=== PATIENT | female | born 1985 | race Caucasian/White ===

== ENCOUNTER 2016-09-14 10:30 | Inpatient (IN) | payer BC ==
[2016-09-14] MEDS ORDERED: TERBUTALINE SULFATE 1 MG/ML VIAL IV PRN (10:44)
[2016-09-14] MEDS ORDERED: MINERAL OIL 60 ML OIL TP PRN (10:44)
[2016-09-14] MEDS ORDERED: EPSOM SALT 454 GM TP PRN (10:44)
[2016-09-14] MEDS ORDERED: OXYTOCIN/RINGERS LACTATE 1,000 ML IV PRN (10:44)
[2016-09-14] MEDS ORDERED: LR 1,000 ML IV PRN (10:44)
[2016-09-14] MEDS ORDERED: LIDOCAINE 1% 30 ML SDV SC PRN (10:44)
[2016-09-14 11:04] LABS: % IMMATURE GRANULYOCYTES 0.5 % (0.0-1.1); ABSOLUTE IMMATURE GRANULOCYTES 0.06 10^3/uL (0.00-0.10); ADD DIFF? NO; ADD MORPH? NO; ADD SCAN? NO; ATYPICAL LYMPHOCYTE FLAG 0 (0-99); FRAGMENT RBC FLAG 0 (0-99); HEMATOCRIT 40.3 % (38.0-47.0); HEMOGLOBIN 14.1 g/dL (12.6-16.3); LEFT SHIFT FLG 0 (0-99); LIPEMIA HEMOLYSIS FLAG 90 (0-99); MEAN CELL VOLUME 91.4 fL (81.5-99.8); MEAN PLATELET VOLUME 11.1 fL (8.7-11.7); PLATELET CLUMPS FLAG 0 (0-99); PLATELET COUNT 137 10^3/uL (150-400); RED BLOOD CELL COUNT 4.41 10^6/uL (4.18-5.33); RED CELL DISTRIBUTION WIDTH 13.8 % (11.5-15.2)
[2016-09-14] MEDS ORDERED: fentaNYL 2MCG/ML/BUP 0.1% RTU 100 ML BAG EP ONE (12:21)
[2016-09-14] MEDS ORDERED: PHENYLEPHRINE HCL 100 MCG/ML SYR ONE (12:52)
[2016-09-14] MEDS ORDERED: PHENYLEPHRINE HCL 100 MCG/ML SYR IVP PRN (13:08)
[2016-09-14] MEDS ORDERED: LR 500 ML IV SCH (13:30)
[2016-09-14] MEDS ORDERED: fentaNYL 2MCG/ML/BUP 0.1% RTU 100 ML EP SCH (13:30)
--- NOTE | 2016-09-14 14:00 | OBPROG ---
OBG Progress Note Assessment/Plan: Assessment: 30 yo @ 40 4/7, active labor. Plan: 09/14/16 13:59 FWB reassuring. GBS neg. Expect . Subjective: 30 yo @ 40 4/7, active labor-comfortable with her epidural. Objective: 09/14/16 10:30 Patient ABO/Rh A NEGATIVE 09/14/16 10:30 - SVE Dilation (cm): 5 Effacement (%): 90 Station: -1 Current Contraction Pattern: Regular FHR (bpm): 130 FHR Pattern Variability: Moderate FHR Category: 2 Membranes: AROM Amniotic Fluid Color: Meconium Stained-Light ICD10 Worksheet Patient Problems: Problems Problem Status Diagnosed First stage of labor established Acute Labor established Acute
[2016-09-14] MEDS ORDERED: LIDOCAINE 1% 30 ML SDV ONE (14:34)
[2016-09-14] MEDS ORDERED: MISOPROSTOL 200 MCG TAB ONE (14:36)
--- NOTE | 2016-09-14 19:36 | OBPROG ---
OBG Progress Note Assessment/Plan: Assessment: 30 yo @ 40 4/7, active labor-feeling pressure.(late entry from 18:30) Plan: FWB reassuring. GBS neg. Expect . 09/14/16 19:35 Subjective: 30 yo @ 40 4/7, active labor-feeling pressure. Objective: 09/14/16 10:30 Patient ABO/Rh A NEGATIVE 09/14/16 10:30 VSS - SVE Dilation (cm): 9 Effacement (%): 100 Station: +1 Current Contraction Pattern: Regular FHR (bpm): 130 FHR Pattern Variability: Moderate FHR Category: 2 Membranes: AROM Amniotic Fluid Color: Meconium Stained-Light ICD10 Worksheet Patient Problems: Problems Problem Status Diagnosed First stage of labor established Acute Labor established Acute
--- NOTE | 2016-09-14 21:23 | OBPROC ---
- Labor and Delivery Onset of Contractions Date: 09/14/16 Onset of Contractions Time: 08:00 Onset of Contractions Type: Spontaneous Rupture of Membranes Date: 09/14/16 Rupture of Membranes Time: 13:30 Rupture of Membranes Type: Artificial Amniotic Fluid Color: Meconium Stained-Light Dilation Complete Time: 20:00 Delivery Type: Vacuum Placenta Delivery Date: 09/14/16 Placenta Delivery Time: 20:55 Episiotomy/Laceration: 3rd Degree Repair: 2-0, 3-0, Vicryl EBL: 400 ml Complications: Other (Specify) (concern for placental abruption, significant bleeding during pushing) - Medications Labor Augmentation/Induction Meds Used: None Anesthesia: Epidural - Info Infant A Delivery Date: 09/14/16 Delivery Time: 20:49 Sex of Infant: Male Score (1 Min): 8 Score (5 Min): 9 (I was called by the nurse to assess the patient while pushing due to vaginal bleeding. The heart tones were 140s, moderate variability. The fetus was at the +2 station, in OA position. I assesed the bleeding and was concerned for partial placental abruption. I recommended to the patient that we proceed with delivery via vacuum suction with the risk of head trauma. The patient agreed to the vacuum suction. With 5 pulls, no popoffs, the infant was easily delivered. Thick meconium was noted in the fluid after the infant was delivered and abrupt delivery of the placenta with a large gush of blood confirmed partial placental abruption. The patient had a partial 3rd degree tear that was repaired with 3.0 and 2.0 Vicryl. Total ebl was 400ml, mom and were stable.)
[2016-09-14] MEDS ORDERED: BISACODYL 10 MG SUPP PR PRN (21:24)
[2016-09-14] MEDS ORDERED: SIMETHICONE 80 MG TAB CHEW PO PRN (21:24)
[2016-09-14] MEDS ORDERED: HYDROCORTISONE 0.5% CREAM TP PRN (21:24)
[2016-09-14] MEDS ORDERED: HYDROCODONE/APAP 5/325 TAB PO PRN (21:24)
[2016-09-14] MEDS ORDERED: DOCUSATE SODIUM 100 MG CAP PO PRN (21:24)
[2016-09-14] MEDS ORDERED: MAGNESIUM HYDROXIDE 30 ML UDCUP PO PRN (21:24)
[2016-09-14] MEDS ORDERED: LACTULOSE 20 GM/30 ML UDCUP PO PRN (21:24)
[2016-09-14] MEDS ORDERED: POLYETHYLENE GLYCOL 3350 17 GM PKT PO PRN (21:24)
[2016-09-14] MEDS: IBUPROFEN 600 MG TAB PO PRN (21:43)
[2016-09-15] MEDS: IBUPROFEN 600 MG TAB PO PRN ×3 (06:10→19:32)
[2016-09-15] MEDS: SENNOSIDES/DOCUSATE SODIUM TAB PO SCH ×2 (08:30→19:32)
--- NOTE | 2016-09-15 08:54 | SOAPPROG ---
SOAP Progress Note Assessment/Plan: Assessment: 30 yo s/p vavd for partial placental abruption Plan: Rubella immune, rh negative, rhogam indicated and ordered, discussed 3rd degree laceration with need for soft stools, routine pp care, home tomorrow. 09/15/16 08:52 Subjective: 30 yo s/p vavd for partial placental abruption-doing well, decreased bleeding, no significant pain. Objective: Vital Signs Temp Pulse Resp BP Pulse Ox 36.8 C 98 17 102/61 94 09/15/16 03:50 09/15/16 03:50 09/15/16 03:50 09/15/16 03:50 09/15/16 03:50 Laboratory Results 09/15/16 06:05 09/14/16 09/15/16 09/16/16 05:59 05:59 05:59 Output Total 400 Balance -400 Physical Exam - Physical Exam General Appearance: no apparent distress Respiratory: lungs clear Cardiac/Chest: regular rate, rhythm Abdomen: non-tender Skin: warm/dry Extremities: non-tender Neuro/Psych: oriented x 3 ICD10 Worksheet Patient Problems: Problems Problem Status Diagnosed First stage of labor established Acute Labor established Acute
[2016-09-16] MEDS: IBUPROFEN 600 MG TAB PO PRN ×3 (01:48→14:29)
--- NOTE | 2016-09-16 07:57 | OBGCSDC ---
General Delivery Information - General Info : 1 Para: 1 Delivery Date: 09/14/16 Delivery Time: 20:49 Delivery Physician/CNM: Kylah Jaramillo Admission Date: 09/14/16 Labs: Patient ABO/Rh A NEGATIVE 09/15/16 00:05 Hct 26.8 % (38.0-47.0) L D 09/15/16 06:05 - [place] Info A Sex of Infant: Male Score (1 Min): 8 Score (5 Min): 9 (I was called by the nurse to assess the patient while pushing due to vaginal bleeding. The heart tones were 140s, moderate variability. The fetus was at the +2 station, in OA position. I assesed the bleeding and was concerned for partial placental abruption. I recommended to the patient that we proceed with delivery via vacuum suction with the risk of head trauma. The patient agreed to the vacuum suction. With 5 pulls, no popoffs, the was easily delivered. Thick meconium was noted in the fluid after the infant was delivered and abrupt delivery of the placenta with a large gush of blood confirmed partial placental abruption. The patient had a partial 3rd degree tear that was repaired with 3.0 and 2.0 Vicryl. Total ebl was 400ml, mom and were stable.) Vaginal - Diagnosis Labor: Spontaneous Rupture of Membranes Type: Artificial Amniotic Fluid Color: Meconium Stained-Light Laceration: 3rd Degree Repair: 2-0, 3-0, Vicryl Complications: Other (Specify) (concern for placental abruption, significant bleeding during pushing) - Operations/Procedures Delivery Type: Vacuum - Delivery EBL: 400 ml Anesthesia: Epidural Discharge Information - Discharge Information Discharge Medications: Ibuprofen, Iron, Vitamins, Vicodin Complications: partial placental abruption Condition: Good Instruction/Follow Up: Six Weeks Discharge Physician/CNM: Melinda Martell Discharge Date: 09/16/16 Dictated: No
[2016-09-16 08:33] VITALS: BP 105/67; PULSE 81; RESP 16; TEMP 97; O2SAT 95
[2016-09-16] MEDS: SENNOSIDES/DOCUSATE SODIUM TAB PO SCH (08:46)
[2016-09-16] MEDS ORDERED: IRON POLYSAC/IRON HEME 28 MG TAB PO SCH (09:00)
== END 2016-09-16 15:04 | disposition home or self-care (01) | DRG 774 ==
LOC: FLD 10:30 → FOB 09-15 03:49
PROVIDERS: ADMIT Obstetrics & Gynecology; ATTEND Obstetrics & Gynecology
DX: O45.8X3 Other premature separation of placenta, third trimester (principal); O70.20 Third degree perineal laceration during delivery, unspecified; Z3A.40 40 weeks gestation of pregnancy; O77.0 Labor and delivery complicated by meconium in amniotic fluid
CPT/HCPCS: J2370; J2590